=== PATIENT | male | born 2000 | race Caucasian/White ===

== ENCOUNTER 2019-09-06 17:33 | Emergency (ER) | payer OTHER, SELFPAY ==
[2019-09-06 17:36] VITALS: BP 114/71; PULSE 74; RESP 18; TEMP 37.1; O2SAT 100
--- NOTE | 2019-09-06 17:41 | DI.RAD.S_ITS ---
PROCEDURE: XR HIP W PEL IF DONE LT 2V INDICATIONS: lt hip pain, hx osteomylitis TECHNIQUE: AP pelvis with lateral view(s) of the left hip(s). COMPARISON: None. FINDINGS: Bones: No fractures or dislocations. Pelvic ring appears intact. No suspicious bony lesions. Soft tissues: The visualized bowel gas pattern is normal. No suspicious soft tissue calcifications. IMPRESSION: No visualized acute fracture or dislocation. However, if clinical concern and/or pain persist, short interval imaging followup in 7-10 days is recommended, as occult injury cannot be definitively excluded. If concern for osteomyelitis persists, a bone scan to be helpful as it is more sensitive in the early stage is compared to x-ray. Dictated by: Silvia Kat M.D. on 09/06/2019 at 18:18 Approved by: Silvia Kat M.D. on 09/06/2019 at 18:19
--- NOTE | 2019-09-06 18:30 | ED.LOWEXIN ---
HPI - Extremity Injury (Lower) General Chief Complaint: Extremity Injury, Lower Stated Complaint: PAIN LEFT LEG Time Seen by Provider: 09/06/19 18:30 Source: patient Mode of arrival: Ambulatory Limitations: no limitations History of Present Illness HPI Narrative: This is a 18-year-old male comes in with pain in his left leg he states sort of the hip but really more into the left groin. He noticed it a couple days ago when he was hunting. He was walking the kind of wet more she areas and started to notice some pain in his groin. He states he continued to do his activity but has not improved. Patient is typically active he works as a electromechanical technician. He states that he has not noticed any other skin changes, he has not had any other trauma or injuries. Of significance he had osteomyelitis about 10 years ago, he had similar pain he was treated [facility] for about 4 weeks with IV antibiotics. He states this pain feels very similar to that. At that point it had gotten quite severe and he was not able to ambulate. He has not had fevers, no chills, no chest pain or shortness of breath, no nausea or vomiting no other GI or urinary symptoms. He has noticed any redness or skin changes. Does not have any weakness numbness or difficulty with movement otherwise. He states with his past experience the only changes he had rib pain in the hip groin area without any other symptoms. patient denies any other medical history, he is not on any medications currently. He did have what sounds like washout of his hip or biopsy. He has not had any other surgeries. Denies any allergies. He smokes tobacco, occasional alcohol no IV drugs or illicit. Related Data Previous Rx's Medication Instructions Recorded ibuprofen 600 mg PO Q6H PRN #20 tab 09/06/19 Allergies Allergy/AdvReac Type Severity Reaction Status Date / Time No Known Drug Allergies Allergy Verified 09/06/19 17:39 Review of Systems Review of Systems ROS Unobtainable: All systems reviewed & are unremarkable except as noted in HPI and below Patient History Medical History (Updated 09/06/19 @ 20:02 by Rosio De La Cruz DO) Osteomyelitis of left hip (Acute) Social History Smoking Status: Current every day smoker tobacco type: cigarettes alcohol intake frequency: a few times a month Substance Use Type: does not use Exam Narrative Exam Narrative: GENERAL: Alert and oriented x three, thin, well-appearing male in no acute distress. HEENT: Head normocephalic, atraumatic, EOMI, pupils reactive, face symmetric, moist mucous membranes NECK: Supple, full range of motion CARDIOVASCULAR: Regular rate and rhythm without murmurs, rubs or gallops. RESPIRATORY: Breath sounds equal bilaterally, no wheezes rales or rhonchi. ABDOMEN: Soft, nontender. Normoactive bowel sounds all 4 quadrants. No guarding or rebound, rigidity, no mass : No CVA tenderness EXTREMITIES: Normal range of motion, patient is nontender to palpation over the hips or greater trochanteric, he does not any tenderness of groin. No swelling, no redness no other skin changes. Patient has full range of motion with 5/5 muscle strength. Neurovascularly intact NEUROLOGICAL: Cranial nerves II through XII grossly intact. Moving all extremities SKIN: Warm, dry, no petechiae, no rashes or lesions noted. Initial Vital Signs Initial Vital Signs: Vital Signs Temperature 98.8 F 09/06/19 17:36 Pulse Rate 74 09/06/19 17:36 Respiratory Rate 18 09/06/19 17:36 Blood Pressure 114/71 09/06/19 17:36 Pulse Oximetry 100 09/06/19 17:36 Course Orders Ordered: ED Orders 09/06/19 17:41 XR hip w pel if done LT 2V Stat 09/06/19 18:48 C-Reactive Protein Quant Stat Complete Blood Count AUTO DIFF Stat Comprehensive Metabolic Panel Stat Erythrocyte Sedimentation Rate Stat Vital Signs Vital signs: Vital Signs - 8 hr 09/06/19 17:36 09/06/19 20:09 Temperature 98.8 F Pulse Rate 74 74 Respiratory Rate 18 16 Blood Pressure 114/71 Blood Pressure [Left Arm] 110/70 Pulse Oximetry 100 100 MDM - Extremity Injury (Lower) Lab Data Attestation: I reviewed the patient's lab results. Result diagrams: 09/06/19 18:48 09/06/19 18:48 Labs: Lab Results 09/06/19 09/06/19 Range/Units 18:48 18:48 WBC 8.6 (4.5-11.0) X10^3/uL RBC 4.60 (4.5-5.9) X10^6/uL Hgb 13.9 (13.5-17.5) g/dL Hct 41.1 (41-53) % MCV 89.5 (80-100) fL MCH 30.3 (26-34) PG MCHC 33.9 (30-36) % RDW 12.5 (11.6-14.8) % Plt Count 259 (150-400) X10^3/uL Neut % (Auto) 56.0 (50-75) % Lymph % (Auto) 31.8 (25-40) % Dupage % (Auto) 7.7 (3-14) % Eos % (Auto) 3.8 (2-4) % Baso % (Auto) 0.7 (0-2) % Neut # (Auto) 4800 (7942-3341) /uL Lymph # (Auto) 2700 (9375-9399) /uL Dupage # (Auto) 700 (0-900) /uL Eos # (Auto) 300 (0-450) /uL Baso # (Auto) 100 (0-100) /uL ESR 3 (0-15) MM/HR Sodium 141 (137-145) mmol/L Potassium 4.2 (3.4-5.1) mmol/L Chloride 103 (98-107) mmol/L Carbon Dioxide 30 (22-32) mmol/L BUN 12 (9-20) mg/dL Creatinine 0.90 (0.66-1.25) mg/dL Estimated GFR > 60.0 (>60) mL/min BUN/Creatinine Ratio 13.3 (6-22) Glucose 86 (70-100) mg/dL Calcium 9.5 (8.4-10.2) mg/dL Total Bilirubin 0.5 (0.2-1.3) mg/dL AST 32 (17-59) IU/L ALT 19 L (21-72) IU/L Alkaline Phosphatase 67 (38-126) U/L C-Reactive Protein < 0.5 (<1.0) mg/dL Total Protein 7.6 (6.3-8.2) g/dL Albumin 4.7 (3.5-5.0) g/dL Globulin 2.9 (1.7-4.1) g/dL Albumin/Globulin Ratio 1.6 (1.0-2.8) Imaging Data Left hip w/ pelvis: Radiologist's impression: [address] [address] XRay Report Signed Patient: Remberto Crawford JMR#: [id number] : 2000Acct:[id number] Age/Sex: te of Service: 09/06/19 Loc: ED Accession Number: [id number] Procedure: XR hip w pel if done LT 2V Ordering Provider: Pb Nguyen D.O. PROCEDURE: XR HIP W PEL IF DONE LT 2V INDICATIONS: lt hip pain, hx osteomylitis TECHNIQUE: AP pelvis with lateral view(s) of the left hip(s). COMPARISON: None. FINDINGS: Bones: No fractures or dislocations. Pelvic ring appears intact. No suspicious bony lesions. Soft tissues: The visualized bowel gas pattern is normal. No suspicious soft tissue calcifications. IMPRESSION: No visualized acute fracture or dislocation. However, if clinical concern and/or pain persist, short interval imaging followup in 7-10 days is recommended, as occult injury cannot be definitively excluded. If concern for osteomyelitis persists, a bone scan to be helpful as it is more sensitive in the early stage is compared to x-ray. Dictated by: Silvia Kat M.D. on 09/06/2019 at 18:18 Approved by: Silvia Kat M.D. on 09/06/2019 at 18:19 [facility] Narrative Medical decision making narrative: Patient's x-ray today and lab work are negative although he has similar pain although he looks quite comfortable in the room. We discussed getting him set up as outpatient with Orthopedic for evaluation and possibly getting MRI imaging for possible osteomyelitis although labs, and exam are benign at this time. We did discuss if he has fevers or new changes he should return. I do not have MRI available today at this time. Discharge Plan Departure Patient Disposition: Home Clinical Impression: Hip pain, left Discharge Date/Time: 09/06/19 20:12 Instructions: DI for Osteomyelitis Activity Restrictions/Additional Instructions: Follow-up with Orthopedic surgery in the next week. Call tomorrow to set up an appointment for follow up and re-evaluation. Your labs today do not show any findings consistent with osteomyelitis but with your prior history I would recommend follow-up with potential further imaging. You may take ibuprofen up to 600 mg every 6 hours as needed and/or Tylenol up to a 1000 mg every 8 hours as needed for pain. Return to the emergency department for fevers greater than 100.4 F, rapidly worsening pain, new redness, swelling, new numbness, weakness, tingling or other new or concerning symptoms. Prescriptions: New ibuprofen 600 mg tablet 600 mg PO Q6H PRN (Reason: pain) Qty: 20 RF: 0 Referrals: Franko Gutiérrez MD [Physician] -
[2019-09-06 18:59] LABS: Add Manual Diff / Slide Review NO; Basophils Absolute Auto 100 /uL (0-100); Basophils Percent Auto 0.7 % (0-2); Eosinophils Absolute Auto 300 /uL (0-450); Eosinophils Percent Auto 3.8 % (2-4); Hematocrit 41.1 % (41-53); Hemoglobin 13.9 g/dL (13.5-17.5); Lymphocytes Absolute Auto 2700 /uL (1100-4500); Lymphocytes Percent Auto 31.8 % (25-40); Mean Corpuscular HGB Conc 33.9 % (30-36); Mean Corpuscular Hemoglobin 30.3 PG (26-34); Mean Corpuscular Volume 89.5 fL (80-100); Monocytes Absolute Auto 700 /uL (0-900); Monocytes Percent Auto 7.7 % (3-14); Neutrophils Absolute Auto 4800 /uL (1500-7000); Platelet Count 259 X10^3/uL (150-400); Red Cell Distribution Width 12.5 % (11.6-14.8); White Blood Cell Count 8.6 X10^3/uL (4.5-11.0)
[2019-09-06 19:12] LABS: Alanine Aminotransferase 19 IU/L (21-72); Albumin 4.7 g/dL (3.5-5.0); Albumin Globulin Ratio 1.6 (1.0-2.8); Alkaline Phosphatase 67 U/L (38-126); Aspartate Aminotransferase 32 IU/L (17-59); BUN Creatinine Ratio 13.3 (6-22); Bilirubin Total 0.5 mg/dL (0.2-1.3); Blood Urea Nitrogen 12 mg/dL (9-20); Calcium 9.5 mg/dL (8.4-10.2); Carbon Dioxide 30 mmol/L (22-32); Chloride 103 mmol/L (98-107); Estimated Glomerular Filt Rate > 60.0 mL/min (>60); Globulin 2.9 g/dL (1.7-4.1); Glucose 86 mg/dL (70-100); HEMOLYSIS < 15 (0-50); Potassium 4.2 mmol/L (3.4-5.1); Sodium 141 mmol/L (137-145); Total Protein 7.6 g/dL (6.3-8.2)
[2019-09-06 19:15] LABS: Erythrocyte Sedimentation Rate 3 MM/HR (0-15)
--- NOTE | 2019-09-06 19:25 | PC.NURSE ---
pt reports h/o osteomylitis 10 years ago in L groin area. reports he was hunting and started to feel the same pain as he use to have. weight bearing. ambulatory. denies h/o hernia.
[2019-09-06 19:27] LABS: C-Reactive Protein Quant < 0.5 mg/dL (<1.0)
[2019-09-06 20:09] VITALS: BP 110/70; PULSE 74; RESP 16; O2SAT 100
== END 2019-09-06 20:12 | disposition home or self-care (01) ==
PROVIDERS: Emergency Provider Emergency Medicine
DX: M25.552 Pain in left hip (principal); M86.9 Osteomyelitis, unspecified
CPT/HCPCS: 36415; 73502; 80053; 85025; 85651; 86140; 99282; 99284